=== PATIENT | male | born 1960 | race African-American/Black ===

== ENCOUNTER 2020-08-28 07:29 | Outpatient (CLI) | payer MEDICARE | END 2020-08-28 07:30 | disposition home or self-care (01) | LOC: LABBT 07:29 | PROVIDERS: ATTEND Ophthalmology Retina Specialist | DX: Z01.812 Encounter for preprocedural laboratory examination (principal); H43.11 Vitreous hemorrhage, right eye; Z20.822 Contact with and (suspected) exposure to COVID-19 | CPT/HCPCS: U0003; U0005; 87635 ==

== ENCOUNTER 2020-09-02 06:28 | Day surgery (SDC) | payer MEDICARE ==
[2020-09-01 12:39] VITALS: BMI 26.6
[2020-09-02] MEDS ORDERED: EPINEPHrine 0.3 MG in Ophthalmic Irrigation Solution 500 ML IRR SCH (06:30)
[2020-09-02] MEDS ORDERED: Fentanyl 100 MCG/2 ML VIAL ONE (06:36)
[2020-09-02] MEDS ORDERED: Midazolam HCl 2 mg/2 ml Vial ONE (06:36)
[2020-09-02] MEDS ORDERED: Cyclopentolate 1% Opth Drop 2 ML BOT ONE (07:31)
[2020-09-02] MEDS ORDERED: Phenylephrine 2.5% Ophth Soln 5 ML BOT ONE (07:32)
[2020-09-02] MEDS ORDERED: Bupivacaine PF 0.75% SDV 10 ML ONE (09:17)
[2020-09-02] MEDS ORDERED: Lidocaine 4% PF 5 ML AMP ONE (09:17)
[2020-09-02] MEDS ORDERED: Lidocaine 1% PF 5 ML VIAL ONE (09:17)
[2020-09-02] MEDS ORDERED: Maxitrol 0.1% Opth Oint 3.5 GM TUBE ONE (09:17)
[2020-09-02] MEDS ORDERED: CEFAZOLIN 1 GM VIAL ONE (09:17)
[2020-09-02] MEDS ORDERED: Triamcinolone 40 MG/ML VIAL ONE (09:17)
[2020-09-02] MEDS ORDERED: PROPOFOL 200 MG/20 ML VIAL ONE (09:17)
== END 2020-09-02 10:45 | disposition home or self-care (01) ==
LOC: SDC 06:28
PROVIDERS: ATTEND Ophthalmology Retina Specialist
PROC: 08T43ZZ Resection of Right Vitreous, Percutaneous Approach (ICD-10-PCS; principal; 2020-09-02)
PROC: 08QE3ZZ Repair Right Retina, Percutaneous Approach (ICD-10-PCS; 2020-09-02)
DX: H33.011 Retinal detachment with single break, right eye (principal); H43.11 Vitreous hemorrhage, right eye; I10 Essential (primary) hypertension; E78.5 Hyperlipidemia, unspecified; N40.0 Benign prostatic hyperplasia without lower urinary tract symptoms; Z79.82 Long term (current) use of aspirin; Z79.899 Other long term (current) drug therapy
CPT/HCPCS: J0171; J0690; J2250; J2704; J3010; J3301; J3490